=== PATIENT | female | born 1955 | race Caucasian/White ===

== ENCOUNTER 2019-08-13 18:59 | Emergency (ER) | payer BC ==
--- NOTE | 2019-08-13 19:31 | ED Physician Documentation ---
PD HPI HEADACHE - Stated complaint Stated Complaint: HIGH BP - Chief complaint Chief Complaint: General - History obtained from History obtained from: Patient - History of Present Illness Timing - onset: Today Timing - details: Gradual onset (she had run out of her BP med and was getting it mailed through [facility] but was delayed and not coming until later this week. She was feeling okay with just some mild headache earlier today, which prompted her to take her BP. It was elevated at 180 systolic and concerned her. No chest pain nor dyspnea.) Worst headache ever?: No: Worst headache ever? Location: Front, Global Quality: Throbbing Contributing factors: Hypertension. No: Recent illness Similar symptoms before: Has not had sx before Review of Systems Constitutional: denies: Fever, Chills Eyes: denies: Decreased vision, Photophobia Nose: reports: Congestion. denies: Rhinorrhea / runny nose Throat: denies: Sore throat Respiratory: denies: Cough GI: denies: Nausea, Vomiting Neurologic: denies: Generalized weakness, Focal weakness, Numbness, Confused, Altered mental status PD PAST MEDICAL HISTORY - Past Medical History Cardiovascular: Hypertension Respiratory: None Neuro: None - Present Medications Home Medications: Ambulatory Orders Medication Instructions Recorded Confirmed Enalapril [Vasotec] 5 mg PO DAILY #7 tablet 08/13/19 Verapamil ER [Calan SA] 180 mg PO DAILY #7 tablet 08/13/19 - Allergies Allergies/Adverse Reactions: Allergies Allergy/AdvReac Type Severity Reaction Status Date / Time Penicillins Allergy Rash Verified 08/13/19 19:04 PD ED PE NORMAL - Vitals Vital signs reviewed: Yes - General General: Alert and oriented X 3, No acute distress, Well developed/nourished - HEENT HEENT: PERRL, EOMI - Cardiac Cardiac: RRR, No murmur - Respiratory Respiratory: Clear bilaterally - Derm Derm: Normal color - Neuro Neuro: Alert and oriented X 3, elastic attacher chainstitch 2-12 intact, No motor deficit, No sensory deficit, Normal speech, Other Eye Opening: Spontaneous Motor: Obeys Commands Verbal: Oriented GCS Score: 15 Results - Vitals Vitals: Vital Signs - 24 hr 08/13/19 08/13/19 08/13/19 19:02 19:53 20:34 Temperature 36.8 C 37 C Heart Rate 92 79 71 Respiratory 18 16 16 Rate Blood Pressure 210/91 H 166/90 H 143/84 H O2 Saturation 99 96 96 Oxygen O2 Source Room air PD MEDICAL DECISION MAKING - ED course Complexity details: considered differential (BP is elevated and so would be good for her to resume her usual meds. No symptoms to suggest urgency. Her BP med is a combo of Verapamil and an JEREMY. Can give Rx for them separately that she should be able to get Rx locally to use until her usual Rx comes in the mail. ), d/w patient Departure - Departure Disposition: Home, Self Care Clinical Impression: Hypertension Qualifiers: Hypertension type: essential hypertension Qualified Code(s): I10 - Essential (primary) hypertension Condition: Stable Record reviewed to determine appropriate education?: Yes Follow-Up: Merly Hinton MD [Primary Care Provider] - Prescriptions: Enalapril [Vasotec] 5 mg PO DAILY #7 tablet Verapamil ER [Calan SA] 180 mg PO DAILY #7 tablet Comments: Use the verapamil and enalapril daily until your prescription comes in through the mail. The verapamil is the same dose as in your prescription and the enalapril is a close substitute for the medication in the [facility] that you are prescribed. Resume your usual medication when it arrives. Discharge Date/Time: 08/13/19 20:41
[2019-08-13] MEDS ORDERED: VERAPAMIL ER 180 MG TABLET PO STA (19:59)
[2019-08-13] MEDS ORDERED: ENALAPRIL 5 MG TABLET PO STA (19:59)
[2019-08-13 20:35] VITALS: BP 143/84
== END 2019-08-13 20:41 | disposition home or self-care (01) ==
LOC: ED 18:59
DX: I10 Essential (primary) hypertension (principal); Z76.0 Encounter for issue of repeat prescription
CPT/HCPCS: 99282; 99283; A9270

== ENCOUNTER 2020-09-30 09:06 | Outpatient (CLI) | payer BC | END 2020-09-30 09:07 | disposition home or self-care (01) | LOC: COV 09:06 | PROVIDERS: ATTEND Family Medicine | DX: R53.83 Other fatigue (principal); Z20.828 Contact with and (suspected) exposure to other viral communicable diseases; M79.10 Myalgia, unspecified site; R68.83 Chills (without fever); R43.9 Unspecified disturbances of smell and taste; R11.2 Nausea with vomiting, unspecified ==

== ENCOUNTER 2023-07-22 08:00 | Outpatient (CLI) | payer BC ==
[2023-07-22 14:40] LABS: GLUCOSE, URINE (UA) 250 mg/dL (NEGATIVE); KETONES,URINE (UA) NEGATIVE (NEGATIVE); LEUKOCYTE ESTERASE, URINE MODERATE (NEGATIVE); NITRITE,URINE POSITIVE (NEGATIVE); OCCULT BLOOD,URINE MODERATE (NEGATIVE); PROTEIN,URINE 100 mg/dL (NEGATIVE)
[2023-07-22 15:12] LABS: CLARITY,URINE HAZY (CLEAR)
[2023-07-22 15:18] LABS: BACTERIA,URINE Rare /HPF (None Seen); BILIRUBIN,URINE COLOR INTERFERENCE (NEGATIVE); SQUAMOUS EPITHELIAL CELL,UR RARE Squamous (<= Few); WBC,URINE >25 /HPF (0-5)
== END 2023-07-22 23:59 | disposition home or self-care (01) ==
LOC: LAB 08:00
PROVIDERS: ATTEND Emergency Medicine
DX: R30.0 Dysuria (principal)
CPT/HCPCS: 81001; 87086; 87181